=== PATIENT | male | born 1995 | race Caucasian/White ===

== ENCOUNTER 2016-10-23 00:04 | Emergency (ER) | payer BC ==
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
[2016-10-23 01:33] VITALS: BP 147/108
[2016-10-23 01:36] LABS: CHLORIDE,CL 102 mmol/L (101-111); SODIUM,NA 137 mmol/L (135-145)
[2016-10-23] MEDS ORDERED: Clindamycin HCl 150 MG Cap PO ONE (02:13)
[2016-10-23] MEDS ORDERED: Acetaminophen/HYDROcodone 325-10 MG Tab PO ONE (02:14)
== END 2016-10-23 02:30 | disposition home or self-care (01) ==
LOC: DL.ED 00:04
DX: S02.642A Fracture of ramus of left mandible, initial encounter for closed fracture (principal); Y04.2XXA Assault by strike against or bumped into by another person, initial encounter; Y92.410 Unspecified street and highway as the place of occurrence of the external cause; R41.82 Altered mental status, unspecified; F17.210 Nicotine dependence, cigarettes, uncomplicated
CPT/HCPCS: 36415; 70450; 70486; 72125; 80053; 80305; 81001; 85025; 99285; A9270; G0480

== ENCOUNTER 2016-11-05 19:52 | Emergency (ER) | payer BC ==
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
[2016-11-05] MEDS ORDERED: Promethazine 25 MG/ML SDV IM ONE (21:22)
[2016-11-05] MEDS ORDERED: Butorphanol 2 MG/ML SDV IM ONE (21:22)
[2016-11-05 22:04] VITALS: BP 136/81
[2016-11-05] MEDS ORDERED: Acetaminophen/HYDROcodone 325-10 MG Tab ONE (22:34)
[2016-11-05] MEDS ORDERED: Acetaminophen/HYDROcodone 325-10 MG Tab PO ONE (22:34)
== END 2016-11-05 22:35 | disposition home or self-care (01) ==
LOC: DL.ED 19:52
DX: S02.64 Fracture of ramus of mandible (principal); F17.210 Nicotine dependence, cigarettes, uncomplicated
CPT/HCPCS: 70110; 96372; 99283; J0595; J2550; A9270-GY

== ENCOUNTER 2017-01-28 10:26 | Emergency (ER) | payer BC ==
[2017-01-28 10:41] VITALS: BP 152/99
[2017-01-28] MEDS ORDERED: Lidocaine 2% Viscous Solution 15 ML Cup PO ONE (11:07)
[2017-01-28] MEDS ORDERED: Clindamycin HCl 150 MG Cap PO ONE (11:08)
[2017-01-28] MEDS ORDERED: traMADol 50 MG Tab PO ONE (11:08)
[2017-01-28] MEDS ORDERED: Ibuprofen 800 MG Tab PO ONE (11:09)
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
== END 2017-01-28 11:43 | disposition home or self-care (01) ==
LOC: DL.ED 10:26
DX: J02.8 Acute pharyngitis due to other specified organisms (principal); B97.89 Other viral agents as the cause of diseases classified elsewhere; K04.7 Periapical abscess without sinus; F17.210 Nicotine dependence, cigarettes, uncomplicated; Z91.048 Other nonmedicinal substance allergy status
CPT/HCPCS: 87081; 87430; 99283; A9270

== ENCOUNTER 2017-11-07 09:37 | Emergency (ER) | payer BC ==
[2017-11-07] MEDS ORDERED: Acetaminophen/HYDROcodone 325-10 MG Tab PO ONE (12:54)
--- NOTE | 2017-11-07 13:00 | EDM.PDOC ---
ED HPI GENERAL MEDICAL PROBLEM - General Chief Complaint: Head Injury Stated Complaint: FELL OF LADDER Time Seen by Provider: 11/07/17 10:05 Source of Information: Reports: Patient History Limitations: Reports: No Limitations - History of Present Illness INITIAL COMMENTS - FREE TEXT/NARRATIVE: This 22 yo male patient was sent to the ED from [facility] due to a right sided headache, vision changes in his right eye and right arm numbness. The patient had fallen off a 16 foot ladder about 1 week ago and has had continuous problems since the fall. With the history of trauma, the patient was sent from the clinic for initial evaluation and management. Duration: Week(s):, Constant Location: Reports: Head, Face, Neck, Upper Extremity, Right Quality: Reports: Ache, Sharp Severity: Severe Improves with: Reports: Medication Worsens with: Reports: None Context: Reports: Trauma (fall from ladder) Associated Symptoms: Reports: No Other Symptoms Treatments [employer]: Reports: Acetaminophen Left Head Pain Score (Numeric/FACES): 7 - Related Data Allergies Allergy/AdvReac Type Severity Reaction Status Date / Time zamorano water Allergy Swollen Uncoded 11/07/17 09:54 Eyes Home Meds: Home Meds . [No Known Home Meds] 11/07/17 [History] Past Medical History - Past Health History Medical/Surgical History: Denies Medical/Surgical History HEENT History: Reports: None Cardiovascular History: Reports: None Respiratory History: Reports: None Gastrointestinal History: Reports: None Genitourinary History: Reports: None Musculoskeletal History: Reports: None Neurological History: Reports: None Psychiatric History: Reports: None Endocrine/Metabolic History: Reports: None Hematologic History: Reports: None Immunologic History: Reports: None Oncologic (Cancer) History: Reports: None Dermatologic History: Reports: None - Infectious Disease History Infectious Disease History: Reports: None - Past Surgical History Head Surgeries/Procedures: Reports: None Musculoskeletal Surgical History: Reports: Other (See Below) Other Musculoskeletal Surgeries/Procedures:: jaw surgery Social & Family History - Family History Family Medical History: Noncontributory - Tobacco Use Smoking Status *Q: Current Every Day Smoker Years of Tobacco use: 5 Packs/Tins Daily: 1 Second Hand Smoke Exposure: No - Caffeine Use Caffeine Use: Reports: Soda - Alcohol Use Days Per Week of Alcohol Use: 2 Number of Drinks Per Day: 5 Total Drinks Per Week: 10 - Recreational Drug Use Recreational Drug Use: Yes Recreational Drug Type: Reports: Marijuana/Hashish Recreational Drug Use Frequency: Weekly - Living Situation & Occupation Living situation: Reports: with Family ED ROS GENERAL - Review of Systems Review Of Systems: ROS reveals no pertinent complaints other than HPI. ED EXAM, HEAD INJURY - Physical Exam Exam: See Below Exam Limited By: No Limitations General Appearance: Alert, WD/WN, No Apparent Distress Head: Scalp Tenderness (right posterior religion) Nexus Criteria: No: Posterior, Midline Cervical Tenderness, Evidence of Intoxication, Altered Level of Consciousness, Focal Neurological Deficit, Painful Distraction Injuries Eyes: Bilateral Eye: EOMI, Normal Inspection, PERRL Ears: Normal External Exam, Normal Canal, Hearing Grossly Normal, Normal TMs Nose: Normal Inspection, Normal Mucousa, No Blood Throat/Mouth: Normal Inspection Neck: Stiff Neck, Tender Lateral Respiratory: No Respiratory Distress, Lungs Clear, Normal Breath Sounds, No Accessory Muscle Use, Chest Non-Tender Cardiovascular: Normal Peripheral Pulses, Regular Rate, Rhythm, No Edema, No Gallop, No JVD, No Murmur, No Rub GI/Abdominal Exam: Normal Bowel Sounds, Soft, Non-Tender, No Organomegaly, No Distention, No Abnormal Bruit, No Mass (Male) Exam: Deferred Rectal (Males) Exam: Deferred Back Exam: Full Range of Motion, Normal Inspection, NT Extremities: Normal Inspection, Normal Range of Motion, Non-Tender, No Pedal Edema, Normal Capillary Refill 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 II-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 nml As Tested, No Motor/Sensory Deficits, Alert, Normal Mood/Affect, Oriented x 3 Skin: Normal Color, Warm/Dry - [place] Coma Score Best Eye Response ([place]): (4) Open Spontaneously Best Verbal Response ([place]): (5) Oriented Best Motor Response ([place]): (6) Obeys Commands Jesus Total: 15 Course - Vital Signs Last Recorded V/S: Last Vital Signs Temp 37.2 C 11/07/17 09:55 Pulse 64 11/07/17 09:55 Resp 20 11/07/17 09:55 BP 132/89 11/07/17 09:55 Pulse Ox 100 11/07/17 09:55 - Orders/Labs/Meds Orders: Active Orders 24 hr Category Date Time Status Brain wo Cont [MR] Routine Exams 11/07/17 Taken Cervical Spine Comp wo Cont [MR] Routine Exams 11/07/17 Taken Meds: Medications Discontinued Medications Generic Name Dose Route Start Last Admin Trade Name Víctor PRN Reason Stop Dose Admin Hydrocodone Bitart/Acetaminophen 1 tab 11/07/17 12:54 Wheeler 325-10 Mg PO 11/07/17 12:55 ONETIME ONE Departure - Departure Time of Disposition: 12:55 Disposition: Home, Self-Care 01 Condition: Fair Clinical Impression: Concussion injury of brain - Discharge Information Instructions: Concussion, Adult, [id number] Forms: ED Department Discharge Care Plan Goals: The patient was advised of the examination and CT results during the visit. The patient also had an MRI arranged through [facility] while the patient was in the ED. The patient should be notified of the MRI results tomorrow by the [facility]. If the patient has not been contacted by noon, the patient should call the [facility]. The patient was given a Wheeler (10/325) while in the ED. The patient was discharged with Wheeler (10/325) #8 to take 1 by mouth every 6 hours as needed for pain. If the patient has any additional symptoms or concerns, the patient should follow-up with his primary care facility or return to the emergency department. - My Orders Last 24 Hours: My Active Orders 11/07/17 Brain wo Cont [MR] Routine Cervical Spine Comp wo Cont [MR] Routine - Assessment/Plan Last 24 Hours: My Active Orders 11/07/17 Brain wo Cont [MR] Routine Cervical Spine Comp wo Cont [MR] Routine
[2017-11-07 13:06] VITALS: BP 142/78
== END 2017-11-07 13:05 | disposition home or self-care (01) ==
LOC: DL.ED 09:37
DX: S06.0X9A Concussion with loss of consciousness of unspecified duration, initial encounter (principal); F17.210 Nicotine dependence, cigarettes, uncomplicated; W11.XXXA Fall on and from ladder, initial encounter
CPT/HCPCS: 70450; 70486; 70551; 71250; 72125; 72141; 99284; A9270

== ENCOUNTER 2019-04-01 00:38 | Emergency (ER) | payer BC, OTHER ==
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
[2019-04-01] MEDS ORDERED: Morphine 4 MG/ML Syringe IVPUSH ONE (00:46)
[2019-04-01] MEDS ORDERED: Sodium Chloride 0.9% 1,000 ML IV ONE (00:46)
[2019-04-01] MEDS ORDERED: Lidocaine 1% 30 ML SDV INJECT ONE (00:51)
[2019-04-01] MEDS ORDERED: Iopamidol 612 MG/ML 100 ML Bottle IVPUSH ONE (00:54)
[2019-04-01 01:11] LABS: ANION GAP 14.4; CHLORIDE,CL 106 mmol/L (101-111); SODIUM,NA 143 mmol/L (135-145)
== END 2019-04-01 03:34 ==
LOC: DL.ED 00:38
DX: S06.5X9A Traumatic subdural hemorrhage with loss of consciousness of unspecified duration, initial encounter (principal); S06.6X9A Traumatic subarachnoid hemorrhage with loss of consciousness of unspecified duration, initial encounter; Z91.048 Other nonmedicinal substance allergy status; V49.9XXA Car occupant (driver) (passenger) injured in unspecified traffic accident, initial encounter
CPT/HCPCS: 12013; 31500; 36415; 51702; 70450; 71045; 71260; 72125; 72128; 72131; 73060; 74177; 80053; 80305; 80320; 81001; 82150; 83690; 85025; 86850; 86900; 86901; 96361; 96374; 96375; 99285; Q9967; 12011; G0480

== ENCOUNTER 2019-04-05 16:32 | Emergency (ER) | payer OTHER, BC ==
[2019-04-05 16:40] VITALS: BP 153/102; PULSE 72
[2019-04-05] MEDS ORDERED: Sodium Chloride 0.9% 1,000 ML IV ONE (17:04)
[2019-04-05] MEDS ORDERED: Sodium Chloride 0.9% 10 ML Syringe FLUSH PRN (17:04)
[2019-04-05] MEDS ORDERED: Ondansetron 4 MG/2 ML SDV IV ONE (17:04)
[2019-04-05 17:38] LABS: ANION GAP 12.2; CHLORIDE,CL 104 mmol/L (101-111); SODIUM,NA 139 mmol/L (135-145)
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
== END 2019-04-05 18:45 | disposition home or self-care (01) ==
LOC: DL.ED 16:32
DX: S06.0X9A Concussion with loss of consciousness of unspecified duration, initial encounter (principal); F17.210 Nicotine dependence, cigarettes, uncomplicated; Z88.5 Allergy status to narcotic agent; Z91.048 Other nonmedicinal substance allergy status; V89.2XXA Person injured in unspecified motor-vehicle accident, traffic, initial encounter
CPT/HCPCS: 36415; 80053; 80320; 85025; 96361; 96374; 99284; J2405; J7030; G0480